=== PATIENT | female | born 1995 | race Caucasian/White ===

== ENCOUNTER 2017-01-24 22:53 | Emergency (ER) | payer OTHER ==
[2017-01-25 02:08] VITALS: BP 122/76
== END 2017-01-25 02:08 | disposition home or self-care (01) ==
LOC: ED 22:53
DX: N76.0 Acute vaginitis (principal)
CPT/HCPCS: 87491; 87591

== ENCOUNTER 2017-06-08 00:49 | Emergency (ER) | payer OTHER ==
[2017-06-08 00:53] VITALS: BP 125/82
== END 2017-06-08 01:28 | disposition home or self-care (01) ==
LOC: ED 00:49
DX: N39.0 Urinary tract infection, site not specified (principal)

== ENCOUNTER 2017-12-08 02:11 | Emergency (ER) | payer OTHER ==
[~2017-12-08] VITALS: Ht 157.5 cm; Wt 54.4 kg
[2017-12-08 02:17] VITALS: Ht 157.5 cm; Wt 54.4 kg
[2017-12-08 03:20] LABS: CALCIUM 8.8 mg/dL (8.5-10.1); CARBON DIOXIDE 25.3 mmol/L (21-32); CHLORIDE SERUM 100 mmol/L (98-107); CREATININE SERUM 0.7 mg/dL (0.6-1.0); GFR1 > 60 mL/min; GLUCOSE SERUM 90 mg/dL (74-106); POTASSIUM SERUM 3.6 mmol/L (3.5-5.1); SODIUM SERUM 135 mmol/L (136-145)
[2017-12-08 06:02] VITALS: BP 148/84
== END 2017-12-08 06:02 | disposition home or self-care (01) ==
LOC: ED 02:11
PROVIDERS: Emergency Medicine
DX: R07.89 Other chest pain (principal)
CPT/HCPCS: 85378; J7030; Q0092; Q9967